=== PATIENT | female | born 1960 | race Caucasian/White ===

== ENCOUNTER 2022-10-02 08:33 | Inpatient (IN) | payer OTHER ==
[2022-09-19 12:51] VITALS: BMI 36.4
[2022-10-02] MEDS ORDERED: LIDOCAINE 1% (10MG/ML) FOR IV START INTRADERMA PRN (09:12)
[2022-10-02] MEDS ORDERED: LACTATED RINGERS 1,000 ML IV SCH (09:12)
[2022-10-02] MEDS ORDERED: DEXAMETHASONE SOD PHOSPHATE 4 MG/ML 1 ML VIAL IV ONE (09:12)
[2022-10-02] MEDS ORDERED: ONDANSETRON 4 MG/2 ML VIAL IVP ONE (09:12)
[2022-10-02] MEDS ORDERED: fentaNYL (PF) 50 MCG/1 ML VIAL IVP ONE (10:33)
[2022-10-02] MEDS ORDERED: MIDAZOLAM 2 MG/2 ML VIAL IVP ONE (10:33)
--- NOTE | 2022-10-02 11:08 | P.ANPRN ---
Procedure Note - Anesthesia - Nerve Block Performed Right Popliteal Single Time Out Performed: Yes (1032) Date of Procedure: 10/02/22 Procedure Start Time: 10:33 Procedure Stop Time: 10:37 Location of Patient: PreOp Indication: Acute Post-Operative Pain, Requested by Surgeon Specifically requested for management of pain by DrKatia: Rene Mohr Sedation Type: Sedate with meaningful contact maintained Preparation: Sterile Prep Catheter: None Needle Types: Pajunk Needle Gauge: 21 Ultrasound used to visualize needle placement: Yes Ultrasound used to observe medication spread: Yes Injectate: 0.5% Ropivacaine (see comment for volume) (15cc + 10cc nacl pf) Blood Aspirated: No Pain Paresthesia on Injection Noted: No Resistance on Injection: Normal Image Stored and Saved: Yes Events: Uneventful and Well Tolerated
--- NOTE | 2022-10-02 11:10 | P.ANPRN ---
Procedure Note - Anesthesia - Nerve Block Performed Right Adductor Canal Single Time Out Performed: Yes (1032) Date of Procedure: 10/02/22 Procedure Start Time: 10:38 Procedure Stop Time: 10:41 Location of Patient: PreOp Indication: Acute Post-Operative Pain, Requested by Surgeon Specifically requested for management of pain by DrKatia: Rene Mohr Sedation Type: Sedate with meaningful contact maintained Preparation: Sterile Prep Position: Supine Catheter: None Needle Types: Pajunk Needle Gauge: 21 Ultrasound used to visualize needle placement: Yes Ultrasound used to observe medication spread: Yes Injectate: 0.5% Ropivacaine (see comment for volume) (15cc +10cc nacl pf) Blood Aspirated: No Pain Paresthesia on Injection Noted: No Resistance on Injection: Normal Image Stored and Saved: Yes Events: Uneventful and Well Tolerated
[2022-10-02] MEDS ORDERED: MORPHINE SULFATE 4 MG/ML SYRINGE IV PRN ×2 (11:48)
[2022-10-02] MEDS ORDERED: METOCLOPRAMIDE 5 MG/ML 2 ML VIAL IVP PRN (11:48)
[2022-10-02] MEDS ORDERED: MORPHINE SULFATE 2 MG/ML SYRINGE IV PRN ×2 (11:48)
[2022-10-02] MEDS ORDERED: PROPOFOL 10 MG/ML 20 ML VIAL IV ONE (12:26)
[2022-10-02] MEDS ORDERED: MIDAZOLAM 2 MG/2 ML VIAL ONE (12:26)
[2022-10-02] MEDS ORDERED: LIDOCAINE 2% INJ 20 MG/ML (2 ML VIAL) ONE (12:26)
[2022-10-02] MEDS ORDERED: ROPIVACAINE 5 MG/ML 30 ML VIAL ONE (12:26)
[2022-10-02] MEDS ORDERED: SODIUM CHLORIDE 0.9% (PF) 10 ML VIAL ONE (12:26)
[2022-10-02] MEDS ORDERED: fentaNYL (PF) 50 MCG/ML 2 ML AMP ONE (12:26)
[2022-10-02] MEDS ORDERED: SODIUM CHLORIDE 0.9% 50 ML with ceFAZolin 2,000 MG IV ONE ×2 (12:31)
[2022-10-02] MEDS ORDERED: LACTATED RINGERS 1,000 ML IV ONE (12:55)
[2022-10-02] MEDS: HYDROmorphone 0.5 MG/0.5 ML SYRINGE IVP PRN ×4 (14:20→14:43)
--- NOTE | 2022-10-02 14:31 | FL ---
EXAMINATION TYPE: FL guidance operating room DATE OF EXAM: 10/02/2022 HISTORY: Fluoroscopy time 54 seconds of fluoroscopy provided.[id number] DAP. IMPRESSION: 1. Fluoroscopy time.
--- NOTE | 2022-10-02 14:46 | XR ---
EXAMINATION TYPE: XR ankle limited RT DATE OF EXAM: 10/02/2022 COMPARISON: NONE HISTORY: Pain FINDINGS: Three views of the ankle demonstrate postsurgical change involving the tibia and fibula. IMPRESSION: 1. Postoperative change
[2022-10-02] MEDS ORDERED: fentaNYL (PF) 50 MCG/ML 2 ML AMP IV ONE (14:48)
[2022-10-02] MEDS: CLINDAMYCIN 900 MG in DEXTROSE 5% IN WATER 50 ML IVPB SCH ×4 (17:20→22:18)
--- NOTE | 2022-10-02 17:21 | P.HPIM ---
History of Present Illness H&P Date: 10/02/22 Patient is a sdyo-[id number] female with PMH of hypothyroidism, dyslipidemia, anxiety that presents to [facility] for elective surgery. Unfortunately, she had a mechanical fall that led to a displaced trimalleolar fracture of the right ankle. She underwent open reduction and internal fixation with Dr. Mohr on 10/02. Patient was seen and examined postoperatively. She reports a 1 out of 10 pain in her right ankle. She has no other complaints. Pertinent positives and negatives as discussed in HPI, a complete review of systems was performed and all other systems are negative. General: non toxic, no distress, appears at stated age Derm: warm, dry Head: atraumatic, normocephalic, symmetric Eyes: EOMI, no lid lag, anicteric sclera Mouth: no lip lesion, mucus membranes moist Cardiovascular: S1S2 reg, no murmur Lungs: CTA bilateral, no rhonchi, no rales , no accessory muscle use Abdominal: soft, nontender to palpation, no guarding, no appreciable organomegaly Ext: no gross muscle atrophy, no edema, no contractures, right ankle casted dressing clean dry and intact Neuro: no focal neuro deficits Psych: Alert, oriented, appropriate affect #Hypothyroidism #Dyslipidemia #Anxiety #Status post open reduction internal fixation of the right ankle POD 0 Based on my assessment of this patient, this patient meets a moderate complexity level of care. I have reviewed the following business risk consultant notes: Anesthesia note 10/02, right popliteal and right adductor canal nerve block. I have reviewed the results of the following tests: Ankle x-ray shows postoperative changes involving the tibia and fibula. I have ordered the following tests: CBC and BMP has been ordered for tomorrow morning. I have discussed the care of this patient with the following independent historian: None. I have independently interpreted the following test below: None. I have discussed the management of this patient with the following physician: None. This patient has a moderate risk of morbidity due to the following reasons: Patient has a chronic diagnosis of hypothyroidism, dyslipidemia and anxiety. Synthroid 137 g by mouth daily has been ordered. Lipitor 10 mg by mouth daily has been ordered. Wellbutrin 300 mg by mouth daily has been ordered. Patient is status post open reduction internal fixation of the right ankle POD 0. She is receiving morphine IV as needed for pain. Percocet 7.5 mg by mouth every 6 hours as needed for mild pain has also been ordered. PT and OT has been consulted. Case management on board for SNF. Heparin SQ for DVT prophylaxis. Patient would like to be FULL CODE. Son Sascha is the decision maker if she can't make decisions for herself. Past Medical History Past Medical History: Hyperlipidemia, Thyroid Disorder Additional Past Medical History / Comment(s): FX RT ANKLE 09/17/22-HAS A BOOT History of Any Multi-Drug Resistant Organisms: None Reported Past Surgical History: Appendectomy, Section, Cholecystectomy, Tubal Ligation Additional Past Surgical History / Comment(s): COLONOSCOPY Past Anesthesia/Blood Transfusion Reactions: No Reported Reaction Past Psychological History: No Psychological Hx Reported Smoking Status: Never smoker Past Alcohol Use History: None Reported Past Drug Use History: None Reported - Past Family History Mother Family Medical History: No Reported History Sister(s) Family Medical History: Cancer Brother(s) Family Medical History: Cancer Medications and Allergies Home Medications Medication Instructions Recorded Confirmed Type Atorvastatin [Lipitor] 10 mg PO DAILY 08/30/22 09/30/22 History Folic Acid 0.4 mg PO DAILY 08/30/22 09/30/22 History Levothyroxine Sodium [Synthroid] 137 mcg PO QAM 08/30/22 09/30/22 History buPROPion XL [Wellbutrin XL] 300 mg PO QAM 08/30/22 09/30/22 History calcitrioL [Calcitriol] 0.25 mcg PO DAILY 08/30/22 09/30/22 History oxyCODONE HCL/ACETAMINOPHEN 1 tab PO Q6H PRN 09/19/22 09/30/22 History [oxyCODONE HCL/ACETAMINOPHEN 7.5-325] Allergies Allergy/AdvReac Type Severity Reaction Status Date / Time cephalexin [From Keflex] AdvReac Nausea & Verified 09/30/22 14:29 Vomiting Physical Exam Vitals: Vital Signs Temp Pulse Resp BP Pulse Ox 10/02/22 16:42 97.9 F 70 20 140/89 99 10/02/22 15:45 60 16 124/73 96 10/02/22 15:30 61 16 125/77 95 10/02/22 15:15 63 16 127/82 95 10/02/22 15:00 69 16 130/82 96 10/02/22 14:45 68 16 138/89 96 10/02/22 14:30 68 16 130/83 96 10/02/22 14:13 97.3 F L 73 16 130/82 96 10/02/22 11:55 67 16 133/83 100 10/02/22 11:25 68 16 133/80 100 10/02/22 11:10 68 16 131/85 100 10/02/22 10:55 66 16 130/84 100 10/02/22 10:42 68 16 129/78 100 10/02/22 10:37 72 16 136/84 100 10/02/22 10:32 74 16 136/84 100 10/02/22 09:35 97.3 F L 73 16 139/86 98 Intake and Output 10/02/22 10/02/22 10/02/22 06:59 14:59 22:59 Intake Total 1350 200 Output Total 50 Balance 1300 200 Intake: IV 1350 200 Output: Estimated Blood Loss 50 Other: Weight 102.512 kg Thrombosis Risk Factor Assmnt - Choose All That Apply Any of the Below Risk Factors Present?: Yes Each Factor Represents 1 point: Age 41-60 years, Obesity (BMI >25) Each Risk Factor Represents 2 Points: Major surgery Thrombosis Risk Factor Assessment Total Risk Factor Score: 4 Thrombosis Risk Factor Assessment Level: Moderate Risk
[2022-10-02] MEDS: oxyCODONE-APAP 7.5-325MG 1 EACH TAB PO PRN (19:22)
[2022-10-03] MEDS: LEVOTHYROXINE 137 MCG TAB PO SCH (06:08)
[2022-10-03 06:39] LABS: HCT 39.4 % (34.0-46.0); HGB 12.7 gm/dL (11.4-16.0); MCH 29.4 pg (25.0-35.0); MCHC 32.3 g/dL (31.0-37.0); MCV 91.3 fL (80.0-100.0); Mean Platelet Volume 9.2; Platelet Count 356 k/uL (150-450); RBC 4.32 m/uL (3.80-5.40); RDW 14.3 % (11.5-15.5); WBC 10.9 k/uL (3.8-10.6)
[2022-10-03 06:51] LABS: African American GFR (CKD) 79 (>60 ml/min/1.73 sqM); Anion Gap 3 mmol/L; Blood Urea Nitrogen 16 mg/dL (7-17); Carbon Dioxide 30 mmol/L (22-30); Chloride 102 mmol/L (98-107); Glucose 109 mg/dL (74-99); Non-African American GFR(CKD) 68 (>60 ml/min/1.73 sqM); Potassium 4.6 mmol/L (3.5-5.1); Sodium 135 mmol/L (137-145)
[2022-10-03] MEDS: buPROPion XL 300 MG TAB.ER.24H PO SCH (08:13)
[2022-10-03] MEDS: ENOXAPARIN 40 MG/0.4 ML SYRINGE SQ SCH (08:13)
[2022-10-03] MEDS: ATORVASTATIN 10 MG TAB PO SCH (08:13)
[2022-10-03] MEDS: FOLIC ACID 1 MG TAB PO SCH (08:13)
[2022-10-03] MEDS: oxyCODONE-APAP 7.5-325MG 1 EACH TAB PO PRN ×2 (08:34→20:38)
--- NOTE | 2022-10-03 09:05 | OP ---
OPERATIVE REPORT DATE OF SERVICE : 10/02/2022 PREOPERATIVE DIAGNOSIS: Displaced right trimalleolar ankle fracture. POSTOPERATIVE DIAGNOSIS: Displaced right trimalleolar ankle fracture. PROCEDURES PERFORMED: Open reduction with internal fixation without posterior lip fixation and right trimalleolar ankle fracture. ANESTHESIA: General with preop nerve block. HEMOSTASIS: Right thigh tourniquet at 250 mmHg. ESTIMATED BLOOD LOSS: Minimal. MATERIALS: [employer] [place] precontoured lateral malleolar plate with associated screws and 2 Creed cannulated screws. INJECTABLES: None. SPECIMENS: None. COMPLICATIONS: None. DESCRIPTION OF PROCEDURE: Prior to the patient being brought to the operating room, Anesthesia administered a nerve block on the right lower extremity. Then, the patient was brought into the operating room and placed on the table in supine position. A time-out was taken to confirm correct patient identifiers, correct laterality of surgery, and correct procedure. Once all staff in the room were in agreement with the time-out, the patient was induced and placed under general anesthesia. A well-padded tourniquet was placed on the right thigh and a bump underneath the right hip to internally rotate the right leg and then the right leg was prepped and draped in the usual manner. The leg was exsanguinated and the tourniquet was inflated to 250 mmHg. Attention was directed over the lateral malleolus where a linear incision was made over the fracture site. The incision was deepened down to the subcutaneous tissue careful to identify avoid retracting neurovascular structures and cauterize any bleeding vessels. Dissection was continued down to the level of the lateral malleolus and the soft tissue reflected anteriorly and posteriorly to expose the fracture site. Utilizing a combination of a rongeur and curette, the soft tissue and hematoma were removed from between the fracture fragments and then, the wound thoroughly irrigated with antibiotic saline. A bone reduction forceps were used to rotate and bring the fracture out to length. Fluoroscopy was utilized to confirm the reduction. However, at this point, it was noted that the medial malleolar fragment was severely unstable and was affecting the overall reduction of the lateral malleolus. Therefore, attention was directed to the medial malleolus and under direct fluoroscopic visualization, guidewires for cannulated screws were placed across the fracture once it was reduced to stabilize it until the lateral malleolar fracture was fixated. Once that was completed, there was significant stability noted at the lateral malleolus. Therefore, further reduction was performed until anatomically aligned. The wire was then placed across the fracture line to maintain correction and then an interfragmentary screw was placed anterior to posterior across the fracture line to compress the fracture and maintain reduction. A precontoured lateral malleolar plate was then placed over the lateral malleolus making sure that the proximal holes were superior to the fracture line. Locking screws were placed proximally into the lateral malleolus, and distal locking and nonlocking screws were placed into the lateral malleolus under direct fluoroscopic visualization, so that the lateral gutter was not penetrated by the screw or drill. Once completed, the ankle was taken through range of motion. There was some instability noted due to the posterior malleolar fracture which was very small and unable to be fixated. It was determined that syndesmotic screws would be placed, so drilling was done through the plate just proximal to the ankle joint. Approximately 10 cm was done lateral to medial and slight anterior angulation to exit the medial malleolus. Both screws were then positioned with the syndesmosis reduced with a clamp and ankle maximally dorsiflexed. Screws were done quad cortically to improve purchase. Final fluoroscopic imaging showed reduction of the fracture with maintained length of the fibula and proper placement of hardware. Then, attention was directed back to the medial malleolus where the 2 wires had been placed previously. Small stab incisions were made through the skin and bluntly dissected down to the bone. The screws were placed over the guidewires and inserted until the locking heads engaged the cortex of the medial malleolus and provide compression across the fracture. Fluoroscopic imaging confirmed reduction of the fracture with maintained congruity of the ankle joint and proper placement of the screws. The wires were then removed and all the wounds were thoroughly irrigated with antibiotic saline. On the lateral incision, deep closure done with 0 Vicryl, subcutaneous closed with 3-0 Monocryl. Skin closed with huong. On the medial side, the small stab incisions were closed with huong. An Arthrex JumpStart dressing was placed over all the incisions and a bulky dry dressing was applied to the right ankle. The tourniquet was released and capillary refill returned to all digits on the right foot. The patient was then placed in a well-padded, well- molded plaster posterior mold/sugar-tong splint. The ankle was held in neutral position until the splint was dried. The anesthesia was reversed and the patient was taken to recovery with vital signs stable. JUNIOR / ROYAL: [id number] /
--- NOTE | 2022-10-03 16:02 | P.PN ---
Subjective Progress Note Date: 10/03/22 Patient is a [id number] female with PMH of hypothyroidism, dyslipidemia, anxiety that presents to [facility] for elective surgery. Unfortunately, she had a mechanical fall that led to a displaced trimalleolar fracture of the right ankle. She underwent open reduction and internal fixation with Dr. Mohr on 10/02. She reports well controlled pain in her ankle. She has no other complaints. General: non toxic, no distress, appears at stated age Derm: warm, dry Head: atraumatic, normocephalic, symmetric Eyes: EOMI, no lid lag, anicteric sclera Mouth: no lip lesion, mucus membranes moist Cardiovascular: S1S2 reg, no murmur Lungs: CTA bilateral, no rhonchi, no rales , no accessory muscle use Ext: no gross muscle atrophy, no edema, no contractures, right ankle casted dressing clean dry and intact Neuro: no focal neuro deficits Psych: Alert, oriented, appropriate affect #Hypothyroidism #Dyslipidemia #Anxiety #Status post open reduction internal fixation of the right ankle POD 1 Based on my assessment of this patient, this patient meets a moderate complexity level of care. I have reviewed the following commercial solar sales consultant notes: None. I have reviewed the results of the following tests: CBC shows leukocytosis of 10.9. BMP shows sodium 135 and glucose 109. I have ordered the following tests: None. I have discussed the care of this patient with the following independent historian: None. I have independently interpreted the following test below: None. I have discussed the management of this patient with the following physician: None. This patient has a moderate risk of morbidity due to the following reasons: Patient has a chronic diagnosis of hypothyroidism, dyslipidemia and anxiety. Synthroid 137 g by mouth daily has been ordered. Lipitor 10 mg by mouth daily has been ordered. Wellbutrin 300 mg by mouth daily has been ordered. Patient is status post open reduction internal fixation of the right ankle POD 1. She is receiving morphine IV as needed for pain. Percocet 7.5 mg by mouth every 6 hours as needed for mild pain has also been ordered. PT and OT has been consulted. Case management on board for SNF. Heparin SQ for DVT prophylaxis. Patient would like to be FULL CODE. Son Sascha is the decision maker if she can't make decisions for herself. Objective - Vital Signs Vital signs: Vital Signs Temp 98.2 F 03/16/23 14:00 Pulse 76 10/03/22 14:00 Resp 16 10/03/22 14:00 BP 106/70 10/03/22 14:00 Pulse Ox 97 10/03/22 14:00 FiO2 Intake & Output 10/02/22 10/03/22 10/03/22 18:59 06:59 18:59 Intake Total 1600 770 40 Output Total 50 750 Balance 1550 20 40 Weight 102.512 kg Intake: IV 1550 Intake, IV Titration 50 50 40 Amount Clindamycin 900 mg In 50 Dextrose 5% in Water 50 ml @ 50 mls/hr IVPB Q8HR [facility] Rx#:[id number] Lactated Ringers 1,000 ml 50 @ 0 mls/hr IV .[facility] Rx#:[id number] Lactated Ringers 1,000 ml 40 @ 20 mls/hr IV .Q24H [facility] Rx#:[id number] Oral 720 Output: Urine 750 Estimated Blood Loss 50 Other: # Voids 1 - Labs CBC & Chem 7: 10/03/22 05:11 10/03/22 05:11 Labs: Abnormal Lab Results - Last 24 Hours (Table) 10/03/22 10/03/22 Range/Units 05:11 05:11 WBC 10.9 H (3.8-10.6) k/uL Sodium 135 L (137-145) mmol/L Glucose 109 H (74-99) mg/dL
[2022-10-04] MEDS: LEVOTHYROXINE 137 MCG TAB PO SCH (05:58)
[2022-10-04 07:29] VITALS: RESP 18
[2022-10-04] MEDS: buPROPion XL 300 MG TAB.ER.24H PO SCH (08:11)
[2022-10-04] MEDS: ATORVASTATIN 10 MG TAB PO SCH (08:11)
[2022-10-04] MEDS: FOLIC ACID 1 MG TAB PO SCH (08:11)
[2022-10-04] MEDS: ENOXAPARIN 40 MG/0.4 ML SYRINGE SQ SCH (08:11)
[2022-10-04] MEDS: oxyCODONE-APAP 7.5-325MG 1 EACH TAB PO PRN ×2 (08:17→14:15)
--- NOTE | 2022-10-04 14:19 | P.DS ---
Providers Date of admission: 10/04/22 08:47 Expected date of discharge: 10/04/22 Attending physician: Rene Mohr DPM Consults: 10/02/22 11:48 Consult Physician Routine Consulting Provider: Sirisha Barreto Consult Reason/Comments: Admit for rehab placement after D/C Do you want consulting provider notified?: Yes Primary care physician: [facility] Course: Patient is a upcn-lsjo-uie female with PMH of hypothyroidism, dyslipidemia, anxiety that presents to [facility] for elective surgery. Unfortunately, she had a mechanical fall that led to a displaced trimalleolar fracture of the right ankle. She underwent open reduction and internal fixation with Dr. Mohr on 10/02. She progressed well with PT and OT during her hospitalization. Initially, [facility] facility the patient decided that she wanted to go home. Patient was seen and examined this morning. She reports well controlled pain in her ankle. She has no other complaints. She is advised that she should be non weight bearing in her right lower extremity until follow up with Podiatry. Pertinent studies include ankle x-ray. Pertinent procedures include open reduction and internal fixation right ankle. General: non toxic, no distress, appears at stated age Derm: warm, dry Head: atraumatic, normocephalic, symmetric Eyes: EOMI, no lid lag, anicteric sclera Mouth: no lip lesion, mucus membranes moist Cardiovascular: S1S2 reg, no murmur Lungs: CTA bilateral, no rhonchi, no rales , no accessory muscle use Ext: no gross muscle atrophy, no edema, no contractures, right ankle casted dressing clean dry and intact Neuro: no focal neuro deficits Psych: Alert, oriented, appropriate affect Discharge Diagnosis: #Hypothyroidism #Dyslipidemia #Anxiety #Status post open reduction internal fixation of the right ankle POD 2 Patient Condition at Discharge: Stable Plan - Discharge Summary Discharge Rx Participant: Yes New Discharge Prescriptions: Continue Levothyroxine Sodium [Synthroid] 137 mcg PO QAM oxyCODONE HCL/ACETAMINOPHEN [oxyCODONE HCL/ACETAMINOPHEN 7.5-325] 1 tab PO Q6H PRN PRN Reason: Pain buPROPion XL [Wellbutrin XL] 300 mg PO QAM Atorvastatin [Lipitor] 10 mg PO DAILY calcitrioL [Calcitriol] 0.25 mcg PO DAILY Folic Acid 0.4 mg PO DAILY Discharge Medication List Atorvastatin [Lipitor] 10 mg PO DAILY 08/30/22 [History] Folic Acid 0.4 mg PO DAILY 08/30/22 [History] Levothyroxine Sodium [Synthroid] 137 mcg PO QAM 08/30/22 [History] buPROPion XL [Wellbutrin XL] 300 mg PO QAM 08/30/22 [History] calcitrioL [Calcitriol] 0.25 mcg PO DAILY 08/30/22 [History] oxyCODONE HCL/ACETAMINOPHEN [oxyCODONE HCL/ACETAMINOPHEN 7.5-325] 1 tab PO Q6H PRN 09/19/22 [History] Follow up Appointment(s)/Referral(s): Rene Mohr DPM [Doctor of Osteopathic Medicine] - 10/15/22 9:30 am [facility], [NON-STAFF] - 1-2 Days [facility] [REFERRING] - 1 Week Patient Instructions/Handouts: *Surgery [facility] - ([place]) Discharge Instructins Foot Surgery Activity/Diet/Wound Care/Special Instructions: Keep the splint clean. dry and intact. Do not remove Keep the leg elevated when resting Use bedside commode with assist Non-weightbearing right leg Patient requires a bedside commode because she is room confined due to a right ankle trimalleolar fracture. Patient requires a wheelchair to complete her ADLS which cannot be done with a walker or cane due to right ankle trimalleolar fracture. Patient is able to self propel. Discharge Disposition: HOME WITH HOME HEALTH SERVICES
[2022-10-04 14:39] VITALS: BP 102/65; PULSE 78; TEMP 98.2
== END 2022-10-04 17:14 | disposition home health service (06) | DRG 313 ==
LOC: OR 08:33 → 4SSUR 15:57 → OR 10-04 08:47
PROVIDERS: ADMIT Podiatrist; ATTEND Podiatrist
PROC: 3E0T3BZ Introduction of Anesthetic Agent into Peripheral Nerves and Plexi, Percutaneous Approach (ICD-10-PCS; 2022-10-02)
PROC: 0QSJ04Z Reposition Right Fibula with Internal Fixation Device, Open Approach (ICD-10-PCS; principal; 2022-10-02 11:00)
DX: S82.851A Displaced trimalleolar fracture of right lower leg, initial encounter for closed fracture (principal); E03.9 Hypothyroidism, unspecified; S82.61XA Displaced fracture of lateral malleolus of right fibula, initial encounter for closed fracture; F41.9 Anxiety disorder, unspecified; E78.5 Hyperlipidemia, unspecified; W19.XXXA Unspecified fall, initial encounter; Z79.899 Other long term (current) drug therapy; Z79.890 Hormone replacement therapy; Z88.1 Allergy status to other antibiotic agents; Z28.311 Partially vaccinated for COVID-19
CPT/HCPCS: 64445; 64447; 76942; 80048; 85027; 94760

== ENCOUNTER 2022-11-03 23:27 | Emergency (ER) | payer OTHER ==
[2022-11-03 23:35] VITALS: TEMP 98.7
--- NOTE | 2022-11-04 | ED ---
Lower Extremity Injury HPI - General Chief Complaint: Extremity Injury, Lower Stated Complaint: Leg Pain Time Seen by Provider: 11/03/22 23:40 Source: patient Mode of arrival: ambulatory Limitations: no limitations - History of Present Illness Initial Comments: Patient is a 62-year-old female presenting with chief complaint of right-sided leg pain. Patient states that she had a recent trip out to [place] yesterday and since then has had cramping particularly in the upper thigh. Patient is concerned for the possibility of blood clot, as she had recent surgery performed back in September to repair a tibia-fibula fracture. No blood thinners. No chest pain, difficulty breathing, palpitations, numbness, tingling, discoloration, redness, warmth. - Related Data Home Medications Medication Instructions Recorded Confirmed Atorvastatin [Lipitor] 10 mg PO DAILY 08/30/22 09/30/22 Folic Acid 0.4 mg PO DAILY 08/30/22 09/30/22 Levothyroxine Sodium [Synthroid] 137 mcg PO QAM 08/30/22 09/30/22 buPROPion XL [Wellbutrin XL] 300 mg PO QAM 08/30/22 09/30/22 calcitrioL [Calcitriol] 0.25 mcg PO DAILY 08/30/22 09/30/22 oxyCODONE HCL/ACETAMINOPHEN 1 tab PO Q6H PRN 09/19/22 09/30/22 [oxyCODONE HCL/ACETAMINOPHEN 7.5-325] Allergies Allergy/AdvReac Type Severity Reaction Status Date / Time cephalexin [From Keflex] AdvReac Nausea & Verified 09/30/22 14:29 Vomiting Review of Systems ROS Statement: Those systems with pertinent positive or pertinent negative responses have been documented in the HPI. ROS Other: All systems not noted in ROS Statement are negative. Past Medical History Past Medical History: Hyperlipidemia, Thyroid Disorder Additional Past Medical History / Comment(s): FX RT ANKLE 09/17/22-HAS A BOOT History of Any Multi-Drug Resistant Organisms: None Reported Past Surgical History: Appendectomy, Section, Cholecystectomy, Tubal Ligation Additional Past Surgical History / Comment(s): COLONOSCOPY Past Anesthesia/Blood Transfusion Reactions: No Reported Reaction Past Psychological History: No Psychological Hx Reported Smoking Status: Never smoker Past Alcohol Use History: None Reported Past Drug Use History: None Reported - Past Family History Mother Family Medical History: No Reported History Sister(s) Family Medical History: Cancer Brother(s) Family Medical History: Cancer General Exam Limitations: no limitations General appearance: alert, in no apparent distress Head exam: Present: atraumatic, normocephalic, normal inspection Eye exam: Present: normal appearance Neck exam: Present: normal inspection, full ROM Right Upper Leg exam: Present: normal inspection. Absent: tenderness, swelling Neurological exam: Present: alert, oriented X3, CN II-XII intact Psychiatric exam: Present: normal affect, normal mood Skin exam: Present: warm, dry, intact, normal color. Absent: rash Course Vital Signs 11/03/22 23:30 Temperature 98.7 F Pulse Rate 77 Respiratory 16 Rate Blood Pressure 140/93 O2 Sat by Pulse 98 Oximetry Medical Decision Making - Medical Decision Making Was pt. sent in by a medical professional or institution ([facility], [facility], urgent care, hospital, or senior care...) When possible be specific @ -No Did you speak to anyone other than the patient for history (EMS, parent, family, police, friend...)? What history was obtained from this source @ -No Did you review nursing and triage notes (agree or disagree)? Why? @ -I reviewed and agree with nursing and triage notes Were old charts reviewed (outside hosp., previous admission, EMS record, old EKG, old radiological studies, urgent care reports/EKG's, senior care records)? Report findings @ -No old charts were reviewed Differential Diagnosis (chest pain, altered mental status, abdominal pain women, abdominal pain men, vaginal bleeding, weakness, fever, dyspnea, syncope, headache, dizziness, GI bleed, back pain, seizure, CVA, palpatations, mental health, musculoskeletal)? @ -Differential Musculoskeletal Muscular strain, contusion, ligament sprain, fracture, arthritis, septic arthritis, bursitis, cellulitis, muscle spasm, nerve compression, DVT, arterial occlusion, herpes zoster, electrolyte abnormality, tumor.... This is not meant to be in all inclusive list EKG interpreted by me (3pts min.). @ -As above X-rays interpreted by me (1pt min.). @ -None done CT interpreted by me (1pt min.). @ -None done U/S interpreted by me (1pt. min.). @ -Ultrasound shows no evidence of DVT What testing was considered but not performed or refused? (CT, X-rays, U/S, labs)? Why? @ -None What meds were considered but not given or refused? Why? @ -None Did you discuss the management of the patient with other professionals (professionals i.e. , PA, [facility], lab, RT, psych nurse, social work case manager, family medicine resident, teacher, training and development officer, case preparer and liner)? Give summary @ -No Was smoking cessation discussed for >3mins.? @ -No Was critical care preformed (if so, how long)? @ -No Were there social determinants of health that impacted care today? How? (Homelessness, low income, unemployed, alcoholism, drug addiction, transportation, low edu. Level, literacy, decrease access to med. care, residential, rehab)? @ -No Was there de-escalation of care discussed even if they declined (Discuss DNR or withdrawal of care, Hospice)? DNR status @ -No What co-morbidities impacted this encounter? (DM, HTN, Smoking, COPD, CAD, Cancer, CVA, ARF, Chemo, Hep., AIDS, mental health diagnosis, sleep apnea, morbid obesity)? @ -None Was patient admitted / discharged? Hospital course, mention meds given and route, prescriptions, significant lab abnormalities, going to OR and other pertinent info. @ -Patient is a 62-year-old female presenting with chief complaint of right leg pain. Patient had a recent orthopedic surgery back in September and had a recent long car ride to [place], she is concerned for DVT. On physical examination there is no notable swelling, neurovascularly intact. Ultrasound is negative for DVT. Patient is educated on supportive management at home.Follow-up with PCP. Report back to ER with any new or worsening symptoms. Discussed return parameters and answered all questions. Patient conveyed verbal understanding and agreed to the plan. I discussed this case in detail with my attending Dr. Carlin Undiagnosed new problem with uncertain prognosis? @ -No Drug Therapy requiring intensive monitoring for toxicity (Heparin, Nitro, Insulin, Cardizem)? @ -No Were any procedures done? @ -No Diagnosis/symptom? @ -Leg pain Acute, or Chronic, or Acute on Chronic? @ -Acute Uncomplicated (without systemic symptoms) or Complicated (systemic symptoms)? @ -Uncomplicated Side effects of treatment? @ -No Exacerbation, Progression, or Severe Exacerbation? @ -No Poses a threat to life or bodily function? How? (Chest pain, [place], MA, pneumonia, PE, COPD, DKA, ARF, appy, cholecystitis, CVA, Diverticulitis, Homicidal, Suicidal, threat to staff... and all critical care pts) @ -No Disposition Clinical Impression: Leg pain Disposition: HOME SELF-CARE Condition: Good Instructions (If sedation given, give patient instructions): Leg Pain (ED) Additional Instructions: Follow-up with PCP. Report back to ER with any new or worsening symptoms. Take Motrin and Tylenol as needed for pain control. Is patient prescribed a controlled substance at d/c from ED?: No Referrals: Taiwo Griffiths MD [Primary Care Provider] - 1-2 days Time of Disposition: 02:18
--- NOTE | 2022-11-04 02:11 | US ---
EXAM: US Duplex Right Lower Extremity Veins CLINICAL HISTORY: ITS.REASON US Reason: pain right leg TECHNIQUE: Real-time duplex ultrasound scan of the right lower extremity veins integrating B-mode two-dimensional vascular structure, Doppler spectral analysis, color flow Doppler imaging and compression. COMPARISON: No relevant prior studies available. FINDINGS: Deep veins: Unremarkable. No DVT in the visualized common femoral, femoral, proximal deep femoral or popliteal veins. The veins demonstrate normal color flow, are normally compressible, with normal phasic flow and/or augmentation response. Soft tissues: No acute findings. No popliteal cyst. IMPRESSION: No evidence of right lower extremity deep venous thrombosis.
[2022-11-04 02:36] VITALS: BP 127/84; PULSE 75; RESP 18
== END 2022-11-04 02:36 | disposition home or self-care (01) ==
LOC: EC 23:27
DX: M79.604 Pain in right leg (principal); E78.5 Hyperlipidemia, unspecified; E07.9 Disorder of thyroid, unspecified; Z88.1 Allergy status to other antibiotic agents; Z79.890 Hormone replacement therapy; Z79.899 Other long term (current) drug therapy
CPT/HCPCS: 99283